=== PATIENT | male | born 1985 | race Caucasian/White ===

== ENCOUNTER 2019-03-25 22:24 | Emergency (ER) | payer OTHER ==
[2019-03-25 22:51] VITALS: BP 124/76; PULSE 78; TEMP 98.2; BMI 24.4
--- NOTE | 2019-03-25 23:01 | PDOC ---
Attending Attestation - Resident Resident Name: Roger Moser - ED Attending Attestation I have performed the following: I have examined & evaluated the patient, The case was reviewed & discussed with the resident, I agree w/resident's findings & plan - HPI HPI: 03/25/19 23:40 Pt comes with left flank pain x 5-6 days. Now with worsening today and a feeling that he cannot urinate. He has no pain at this time. States that while he was in the waiting rook, he feels like something may have moved. He never saw gross hematuria. He had dysuria. Pt vomited a couple times today. No other complaints. - Physicial Exam PE: 03/26/19 00:35 Exam is normal at this time. Pt has no flank pain and mminimal suprapubic pain. - Medical Decision Making 03/26/19 00:[address] scan at this time as well as blood tests. UA was sent. UA result pending. Pt wants to leave and sign out AMA.
--- NOTE | 2019-03-25 23:55 | PDOC ---
History of Present Illness - General Chief Complaint: Pain Stated Complaint: PAIN Time Seen by Provider: 03/25/19 23:01 History Source: Patient Past History - Past Medical History Allergies/Adverse Reactions: Allergies Allergy/AdvReac Type Severity Reaction Status Date / Time No Known Allergies Allergy Verified 03/25/19 22:41 COPD: No - Immunization History Immunization Up to Date: Yes - Suicide/Smoking/Psychosocial Hx Smoking History: Never smoked Hx Alcohol Use: Yes (DAILY) Drug/Substance Use Hx: No *Physical Exam - Vital Signs Last Vital Signs Temp Pulse Resp BP Pulse Ox 98.2 F 78 17 124/76 98 03/25/19 22:42 03/25/19 22:42 03/25/19 22:42 03/25/19 22:42 03/25/19 22:42 Medical Decision Making - Medical Decision Making 03/26/19 05:53 33 y/o M with no PMH p/w one hour of sharp L flank pain, difficulty passing urine, pain now improved from onset, consistent with kidney stone. Plan: UA Urine culture Spiral CT renal stone Bedside US to evaluate for hydronephrosis Dispo: Pending imaging, likely discharge home --- On reassessment, pain significantly improved without intervention. No hydronephrosis noted on US. --- Mr. Martinez refuses CT given improvement of pain. Discussed possibility of worsening pain, missing other acute pathology, obstructive stone requiring further intervention. *DC/Admit/Observation/Transfer Diagnosis at time of Disposition: Renal calculi - Discharge Dispostion Disposition: AGAINST MEDICAL ADVICE Condition at time of disposition: Improved - Referrals - Patient Instructions - Post Discharge Activity
[2019-03-25] MEDS ORDERED: SODIUM CHLORIDE 0.9% 500 ML INFUS.BAG IV ONE (23:58)
[2019-03-26 00:50] LABS: PH,URINE 5.5 (5.0-8.0); URINE APPEARANCE Clear; URINE BILIRUBIN Negative (NEGATIVE); URINE COLOR Yellow; URINE GLUCOSE (UA) Negative (NEGATIVE); URINE KETONE Negative (NEGATIVE); URINE LEUK ESTERASE Negative (NEGATIVE); URINE NITRITE Negative (NEGATIVE); URINE PROTEIN Negative (NEGATIVE); URINE UROBILINOGEN 0.2 mg/dL (0.2-1.0)
[2019-03-26 01:05] LABS: EPI CELLS 0.8 /HPF (0-5/HPF); HYALINE CASTS 3.36 /lpf (0-8); URINE RBC 19.3 /hpf (0-4); URINE WBC 0.6 /hpf (0-5)
== END 2019-03-26 01:01 | disposition left against medical advice (07) ==
LOC: JER 22:24
DX: N20.0 Calculus of kidney (principal)
CPT/HCPCS: 81003; 99282-25